=== PATIENT | male | born 1955 | race Caucasian/White ===

== ENCOUNTER → 2020-04-26 | Outpatient (CLI) | payer BC ==
--- NOTE | 2020-04-26 10:06 | Diagnostic Imaging Report ---
PROCEDURE: US Gallbladder. TECHNIQUE: Multiple real-time grayscale images were obtained over the right upper quadrant in various projections. INDICATION: Right upper quadrant pain. FINDINGS: The liver is normal in size. There is hepatopetal flow in the main portal vein. There is no biliary duct dilatation. Common bile duct measures 6.2 cm. There is cholelithiasis. There is no gallbladder wall thickening or pericholecystic fluid. There is a suggestion of adenomyomatosis. Pancreas not well seen due to bowel gas. Ectasia of the abdominal aorta measuring up to 2.8 cm. Right kidney is normal. No ascites. IMPRESSION: Cholelithiasis and questionable adenomyomatosis of the gallbladder. Ectasia of the aorta up to 2.8 cm. Dictated by: Dictated on workstation # [id number]
== END ==
LOC: RAD 08:30
PROVIDERS: ATTEND Surgery
DX: K80.20 Calculus of gallbladder without cholecystitis without obstruction (principal)
CPT/HCPCS: 76705

== ENCOUNTER 2020-07-12 05:33 | Outpatient (RCR) | payer BC ==
[~2020-07-12] VITALS: Ht 182.9 cm; Wt 72.3 kg
== END 2020-07-12 09:19 | disposition home or self-care (01) ==
LOC: PREOP 05:33
PROVIDERS: ATTEND Surgery
DX: Z01.812 Encounter for preprocedural laboratory examination (principal); K80.20 Calculus of gallbladder without cholecystitis without obstruction; Z20.828 Contact with and (suspected) exposure to other viral communicable diseases
CPT/HCPCS: 87635

== ENCOUNTER 2020-07-14 07:02 | Day surgery (SDC) | payer BC ==
[2020-07-14] VITALS (10 sets, daily range): BP systolic 113–164; BP diastolic 69–88
[~2020-07-14] VITALS: Ht 182.9 cm; Wt 68.4 kg
[2020-07-14] MEDS ORDERED: LACTATED RINGERS 1,000 ML IV PRN (07:13)
[2020-07-14] MEDS ORDERED: ceFAZolin 2 GM IV Premixed 50 ML IV ONE (07:15)
[2020-07-14] MEDS ORDERED: CATHETER FLUSH 10 ML SYR IV PRN (07:15)
[2020-07-14] MEDS ORDERED: LIDOCAINE/EPI 1%-1:100,000 (XYLOCAINE) 20ML ONE (07:23)
[2020-07-14] MEDS ORDERED: IOPAMIDOL 61% 30 ML (ISOVUE 300) VIAL ONE (07:23)
[2020-07-14] MEDS ORDERED: GLYCOPYRROLATE 0.2 MG/ML (ROBINUL) 2 ML VIAL ONE (07:32)
[2020-07-14] MEDS ORDERED: ONDANSETRON 4 MG/2 ML (SDV) Z0FRAN ONE (07:32)
[2020-07-14] MEDS ORDERED: fentaNYL INJECTION 100 MCG/2 ML AMP ONE (07:32)
[2020-07-14] MEDS ORDERED: MIDAZOLAM 2 MG/2 ML (VERSED) VIAL ONE (07:32)
[2020-07-14] MEDS ORDERED: ROCURONIUM 10 MG/ML 5 ML SYRINGE IV ONE (07:32)
[2020-07-14] MEDS ORDERED: LIDOCAINE PF 2% 5 ML (XYLOCAINE) VIAL ONE (07:32)
[2020-07-14] MEDS ORDERED: proPOfol 200 MG/20 ML (DIPRIVAN) VIAL IV ONE (07:32)
[2020-07-14] MEDS ORDERED: NEOSTIGMINE 3 MG/3 ML VIAL ONE (07:32)
[2020-07-14] MEDS ORDERED: SEVOFLURANE (ULTANE) 15 ML INHAL SOLN ONE ×2 (07:32→09:54)
[2020-07-14] MEDS ORDERED: RT-ALBUTEROL SULF 2.5 MG/3 ML PRE-MIX VIAL INH ONE (07:45)
--- NOTE | 2020-07-14 08:15 | Progress Note-Pre Operative ---
Pre-Operative Progress Note H&P Reviewed The H&P was reviewed, patient examined and no changes noted. Time Seen by Provider: 08:09 Date H&P Reviewed: Jul 14, 2020 Time H&P Reviewed: 08:10 Pre-Operative Diagnosis: Sylvia/sylvia ROCIO SANTIAGO DO Jul 14, 2020 08:15
[2020-07-14] MEDS ORDERED: HYDROmorphone 2 MG/ML VIAL (DILAUDID) ONE (09:18)
--- NOTE | 2020-07-14 09:37 | Progress Note-Post Operative ---
Post-Operative Progess Note Surgeon (s)/House Visitor (s) Surgeon ROCIO SANTIAGO DO House Visitor: Joan Pre-Operative Diagnosis Lilia/lilia Post-Operative Diagnosis same Procedure & Operative Findings Date of Procedure 07/14/20 Procedure Performed/Findings PROCEDURE: Laparoscopic cholecystectomy with intraoperative cholangiogram. COMPLICATIONS: None. PROCEDURE: The patient was taken to the operating suite and was prepped and draped in sterile fashion. A surgical pause was performed. Just superior to the umbilicus, a 12 mm incision was made. Dissection was taken down to the fascia, which was then scored and grasped with a Gabrielle and the abdomen was then entered. A 0 Vicryl suture was placed in a [id number]-uk-[id number] fashion and a Celeste trocar was placed and secured. Pneumoperitoneum was achieved. A 5mm trochar place in the subxyphoid and 2 in the right upper quadrant. Adhesions were noted, covering the gallbladder and these were carefully taken with bovie cauterty and blunt dissection. The gallbladder was then grasped and elevated. The adhesions were continued to be taken down and then able to visualize the cystic duct and cystic artery. Cystic artery was in front and clips were placed superiorly and inferiorly on the artery and it was then cut. Next the cystic duct was dissected out. Clip was placed on the distal portion of the cystic duct which was then partially transected. An arrow catheter was inserted into the duct. The cholangiogram was then performed. No filing defects and contrast made its way into the duodenum. Catheter removed. Clips were placed on proximal portion of the cystic duct and then the duct was then transected. Hook cautery was used to dissect the gallbladder from the gallbladder fossa achieving hemostasis. The gallbladder was placed in an Endobag and removed through the 12 mm trocar site. The abdomen was then reinspected. Copious amounts of irrigation were used to irrigate the abdomen and there were no signs of active bleeding. Hemostasis had been achieved. The 12 mm fascial defect was then closed with 0 Vicryl suture that had been placed in a fmtqkn-td-oauvy fashion. The stone was so large it ripped the fascia on the way out and another 0 Vicryl figure of eight stitch was placed. The abdomen was then desufflated, the trocars were removed. The abdomen was then washed and dried. The skin was then closed using 4-0 Monocryl in a subcuticular fashion. The abdomen was washed and dried and Skin Affix was place over incisions. Patient tolerated the procedure well without any complications and was taken to the recovery room in stable condition. Anesthesia Type GET Estimated Blood Loss Estimated blood loss (mL): 60ml Specimens/Packing Specimens Removed GB and contents ROCIO SANTIAGO DO Jul 14, 2020 09:37
[2020-07-14] MEDS ORDERED: HYDR-4226 PO (09:38)
--- NOTE | 2020-07-14 09:39 | Diagnostic Imaging Report ---
Indication: Fluoroscopy during intraoperative cholangiogram. Fluoroscopy was provided in OR during intraoperative cholangiogram. 15 seconds of fluoroscopic time was utilized. Images demonstrate contrast being injected via the cystic duct remnant. Intrahepatic and extra hepatic bile ducts are of normal caliber. No filling defects are seen to suggest retained stone. Contrast flows into the duodenum. IMPRESSION: Fluoroscopy during intraoperative cholangiogram. Dictated by: Dictated on workstation # [id number]
--- NOTE | 2020-07-14 09:40 | Discharge Inst-Surgical ---
Discharge Inst-Surgical Depart Medication/Instructions New, Converted or Re-Newed RX: RX Given to Pt/Family Patient Instructions Follow up Appt: Make appointment for 1 week. [phone] Instructions: No lifting greater than 20 pounds. No strenuous activity. May shower in 24 hours, no tub bath or soaking. Use incentive spirometer at home as directed. No Smoking Skin/Wound Care: May remove bandages in am. You need to leave the Dermabond on incision it will fall off on it's own. Symptoms to Report: Appetite Changes, Extremity Discoloration, Numbness/Tingling, Swelling Increased, Bleeding Excessive, Eyesight Changes, Pain Increased, Urine Color Change, Constipation(Persistent), Fever over 101 degree F, Pain/Pressure in chest, Urinating Difficulty, Cough Up/Vomit Blood, Heart Beat Irreg/Pounding, Pain/Pressure in jaw, Cramps in feet or legs, Lightheadedness, Pain/Pressure in shoulder, Diarrhea(Persistent), Memory Changes Suddenly, Questions/Concerns, Weight gain consecutive days, Dizziness/Fainting, Nausea/Vomiting, Shortness of Breath, Weight gain over 2 pounds If questions or concerns contact your physician Or seek help at emergency department. Activity Activity as Tolerated: Yes Activity Instructions: Avoid Stress to Incision Driving Instructions: No Driving/Refer to Diet Discharge Diet: Avoid Fatty Foods, Low Fat/Low Cholesterol Diet After 24 Hours: Clear Liquid if Nauseous If Any Problems/Questions/Issu: Contact Your Physician, Go to Emergency Room Skin/Wound Care Infection Signs and Symptoms: Increased Redness, Foul Odor of Wound, Increased Drainage, Skin Itchy or Has a Rash, Increased Swelling, Temperature Above 101 F Wound Care Comment: heating pad to shoulder or neck tonight for pain Bathing Instructions: Shower Stitches/[place]/Dermabond Dis: Dermabond Ice Pack: Ice On and Off Site ROCIO SANTIAGO DO Jul 14, 2020 09:40
[2020-07-14] MEDS ORDERED: HYDROmorphone 2 MG/ML VIAL (DILAUDID) IV ONE (10:00)
[2020-07-14] MEDS ORDERED: ONDANSETRON 4 MG/2 ML (SDV) Z0FRAN IVP PRN (10:00)
[2020-07-14] MEDS ORDERED: morphine INJ 10 MG/ML 1ML (SYR OR VIAL) IVP ONE (10:00)
[2020-07-14] MEDS ORDERED: morphine INJ 10 MG/ML 1ML (SYR OR VIAL) ONE (10:00)
--- NOTE | 2020-07-14 10:30 | NUR ---
TO AMB SURG FROM PAR PER CART. DROWSY, C/O RUQ PAIN RATED 5. DERMABOND INTACT TO X4 LAP ABD SURGICAL SITES, ICE PACK ON. PO FLUIDS AND CRACKERS PROVIDED.
[2020-07-14] MEDS ORDERED: HYDROcodone/APAP 5 MG/325 MG (LORTAB) TAB PO ONE (11:00)
--- NOTE | 2020-07-14 11:08 | NUR ---
TAKING PO FLUIDS AND CRACKERS WITHOUT PROBLEM. LORTAB 5/325, ONE TAB, GIVEN PO FOR C/O RUQ ABD PAIN RATED 6.
--- NOTE | 2020-07-14 11:45 | NUR ---
REPORT RUQ PAIN EASING SLOWLY, RATES 4 NOW.
--- NOTE | 2020-07-14 12:40 | NUR ---
HAS BEEN INSTRUCTED ON INCENTIVE SPIROMETRY AND HAS BEEN TO BR TO VOID. PAIN RATE 3. STATES HE IS READY FOR DISMISSAL.
--- NOTE | 2020-07-14 12:44 | Anesthesia-General Post-Op ---
General Patient Condition Mental Status/LOC: Same as Preop Cardiovascular: Satisfactory Nausea/Vomiting: Absent Respiratory: Satisfactory Pain: Controlled Complications: Absent Post Op Complications Complications None Follow Up Care/Instructions Patient Instructions None needed. Anesthesia/Patient Condition Patient Condition Patient was seen this morning after the procedure and he was doing well, no complaints, stable vital signs, no apparent adverse anesthesia problems. JOSE CALLAHAN DO Jul 14, 2020 12:44
== END 2020-07-14 12:40 | disposition home or self-care (01) ==
LOC: SDC 07:02
PROVIDERS: ATTEND Surgery
DX: K80.10 Calculus of gallbladder with chronic cholecystitis without obstruction (principal); J45.909 Unspecified asthma, uncomplicated; F17.210 Nicotine dependence, cigarettes, uncomplicated; Z79.51 Long term (current) use of inhaled steroids
CPT/HCPCS: 76000; 87081; 88304